=== PATIENT | female | born 1990 | race Caucasian/White ===

== ENCOUNTER 2023-01-30 10:03 | Outpatient (CLI) | payer OTHER | END 2023-01-30 10:50 | disposition home or self-care (01) | LOC: NST 10:03 | PROVIDERS: ATTEND Obstetrics & Gynecology Maternal & Fetal Medicine | DX: Z34.92 Encounter for supervision of normal pregnancy, unspecified, second trimester (principal); Z3A.24 24 weeks gestation of pregnancy ==

== ENCOUNTER 2023-05-07 14:00 | Inpatient (IN) | payer OTHER ==
[~2023-05-07] VITALS: Ht 175.3 cm; Wt 83.5 kg
[2023-05-14] MEDS ORDERED: RINGERS SOLUTION,LACTATED 1,000 ML IV SCH (21:00)
[2023-05-14] MEDS ORDERED: AMPICILLIN SODIUM 1,000 MG VIAL IV SCH (21:00)
[2023-05-14] MEDS ORDERED: AMPICILLIN SODIUM 2,000 MG VIAL IV ONE (21:00)
[2023-05-14] MEDS ORDERED: IRON240 MG (21:02)
[2023-05-14] MEDS ORDERED: [UNRECOGNIZED DRUG - OTHER] PO (21:02)
[2023-05-14] MEDS ORDERED: VALTREX1000 MG PO (21:03)
[2023-05-14 23:03] LABS: HEMATOCRIT 32.1 % (36.0-45.00); MEAN CELL VOLUME 86.7 fL (80.00-100.00); MEAN CORPUSCULAR HGB CONC 33.2 g/dl (32.0-36.0); PLATELET COUNT 214 K/uL (150-450); RED CELL DISTRIBUTION WIDTH 15.6 % (11.5-14.5)
[2023-05-14 23:13] LABS: HEMOGLOBIN 10.6 g/dL (12.0-15.00); MEAN CORPUSCULAR HEMOGLOBIN 28.6 pg (27.00-32.0)
[2023-05-14 23:21] LABS: INR < 0.93; PARTIAL THROMBOPLASTIN TIME 24.8 SECONDS (22.0-34.0); PROTHROMBIN TIME 9.4 SECONDS (9.0-11.5)
[2023-05-14 23:24] LABS: ALBUMIN 2.9 gm/dL (3.4-5.0); BILIRUBIN TOTAL 0.26 mg/dL (0.3-1.2); CALCIUM 8.7 mg/dL (8.5-10.1); CREATININE SERUM 0.59 mg/dL (0.55-1.02); GFR 117.38; GLOBULINA 3.7 G/DL (2.4-3.5); POTASSIUM 3.89 mEq/L (3.5-5.1); TOTAL PROTEIN 6.6 gm/dL (6.4-8.2)
[2023-05-15] MEDS ORDERED: OXYTOCIN 20 UNITS/500ML RL PIGGYBAG IV SCH (06:30)
[2023-05-15] MEDS ORDERED: MORPHINE SULFATE 4 MG/ML VIAL IV ONE (09:30)
[2023-05-15] MEDS ORDERED: OXYTOCIN 20 UNITS/1000ML RL PIGGYBAG IV ONE (09:58)
[2023-05-15] MEDS ORDERED: CHLORHEXIDINE GLUCONATE 120 ML BOTTLE TOP ONE (09:58)
[2023-05-15] MEDS ORDERED: ERYTHROMYCIN BASE 1 GM TUBE OP ONE (09:58)
[2023-05-15] MEDS ORDERED: CHLORHEXIDINE GLUCONATE 120 ML BOTTLE TP SCH (12:30)
[2023-05-15] MEDS ORDERED: ERYTHROMYCIN BASE 1 GM TUBE OP SCH (12:30)
[2023-05-15] MEDS ORDERED: IBUprofen 400 MG TABLET PO PRN (12:30)
[2023-05-16 06:56] LABS: HEMATOCRIT 32.1 % (36.0-45.00); HEMOGLOBIN 10.6 g/dL (12.0-15.00); MEAN CELL VOLUME 88.8 fL (80.00-100.00); MEAN CORPUSCULAR HEMOGLOBIN 29.3 pg (27.00-32.0); MEAN CORPUSCULAR HGB CONC 32.9 g/dl (32.0-36.0); PLATELET COUNT 212 K/uL (150-450); RED BLOOD COUNT 3.62 M/uL (4.00-6.00)
== END 2023-05-17 14:05 | disposition home or self-care (01) | DRG 807 ==
LOC: LDR 05-14 20:50 → OB/GYN 05-15 14:04
PROVIDERS: Obstetrics & Gynecology; ADMIT Obstetrics & Gynecology Maternal & Fetal Medicine; ATTEND Obstetrics & Gynecology Maternal & Fetal Medicine
PROC: 4A1HXCZ Monitoring of Products of Conception, Cardiac Rate, External Approach (ICD-10-PCS; 2023-05-14)
PROC: 10E0XZZ Delivery of Products of Conception, External Approach (ICD-10-PCS; principal; 2023-05-15)
PROC: 0KQM0ZZ Repair Perineum Muscle, Open Approach (ICD-10-PCS; 2023-05-15)
DX: O70.1 Second degree perineal laceration during delivery (principal); O99.824 Streptococcus B carrier state complicating childbirth; Z37.0 Single live birth; Z3A.39 39 weeks gestation of pregnancy; Z20.822 Contact with and (suspected) exposure to COVID-19

== ENCOUNTER 2023-12-03 04:57 | Emergency (ER) | payer OTHER ==
[~2023-12-03] VITALS: Ht 175.3 cm; Wt 68.0 kg
[~2023-12-03 04:57] MED LIST: IRON240 MG; VALTREX1000 MG PO; [UNRECOGNIZED DRUG - OTHER] PO
[2023-12-03] MEDS ORDERED: PROMETHAZINE HCL 50 MG/ML AMPUL IM STA (06:47)
[2023-12-03] MEDS ORDERED: HYOSCYAMINE SULFATE 0.125 MG TAB.SUBL SL STA (06:47)
[2023-12-03] MEDS ORDERED: FAMOTIDINE/PF 20 MG/2 ML VIAL IV PUSH STA (06:48)
[2023-12-03] MEDS ORDERED: LACTOBACILLUS ACIDOPHILUS 1 CAP CAP PO STA (06:48)
[2023-12-03] MEDS ORDERED: 0.9 % SODIUM CHLORIDE 1,000 ML IV ONE (07:00)
[2023-12-03 07:35] LABS: HEMATOCRIT 41.4 % (36.0-45.00); HEMOGLOBIN 13.7 g/dL (12.0-15.00); MEAN CELL VOLUME 87.2 fL (80.00-100.00); MEAN CORPUSCULAR HEMOGLOBIN 28.9 pg (27.00-32.0); MEAN CORPUSCULAR HGB CONC 33.2 g/dl (32.0-36.0); PLATELET COUNT 238 K/uL (150-450); RED BLOOD COUNT 4.75 M/uL (4.00-6.00); RED CELL DISTRIBUTION WIDTH 13.2 % (11.5-14.5)
[2023-12-03 08:06] LABS: CALCIUM 9.5 mg/dL (8.5-10.1); CREATININE SERUM 0.72 mg/dL (0.55-1.02); GFR 92.72; POTASSIUM 4.4 mEq/L (3.5-5.1)
[2023-12-03 09:01] LABS: PH,URINE 5.5 (5.0-8.0); URINE APPEARANCE Clear; URINE BILIRRUBIN Negative (NEGATIVE); URINE BLOOD Small; URINE COLOR Yellow; URINE GLUCOSE Negative (NEGATIVE); URINE KETONE Trace (NEGATIVE); URINE LEUKOCYTE Negative; URINE NITRATE Negative; URINE PROTEIN Negative (NEGATIVE); URINE UROBILINOGEN 0.2 E.U./dl
[2023-12-03 09:02] LABS: URINE BACTERIA 206.5 uL (0.0-1933); URINE RBC 38.6 uL (0.0-20.8); URINE WBC 4.9 uL (0.0-23.2)
== END 2023-12-03 17:15 | disposition home or self-care (01) ==
LOC: ER 04:59
PROVIDERS: General Practice
DX: K52.89 Other specified noninfective gastroenteritis and colitis (principal)